=== PATIENT | female | born 1940 | race Caucasian/White ===

== ENCOUNTER 2021-12-05 10:18 | Day surgery (SDC) | payer OTHER ==
[2021-12-05] MEDS ORDERED: Ringers Lactate 1,000 ML IV ONE (10:55)
[2021-12-05] MEDS ORDERED: ACETAMINOPHEN 500 MG TAB ONE (11:19)
[2021-12-05] MEDS ORDERED: CELECOXIB 100 MG CAPSULE ONE (11:19)
[2021-12-05] MEDS ORDERED: CEFOXITIN SODIUM 1 GM/VIAL ONE (11:43)
[2021-12-05 11:44] LABS: SARS-CoV-2 Antigen Rapid Res Negative (Negative)
[2021-12-05] MEDS ORDERED: ROCURONIUM 50 MG/5 ML VIAL IV ONE (11:48)
[2021-12-05] MEDS ORDERED: propofoL 200 MG/20 ML VIAL IV ONE (11:48)
[2021-12-05] MEDS ORDERED: MIDAZOLAM HCL 2 MG/2 ML INJ ONE (11:48)
[2021-12-05] MEDS ORDERED: FENTANYL CITR 100 MCG/2 ML ONE (11:48)
[2021-12-05] MEDS ORDERED: LIDOCAINE 1% MPF 5 ML VIAL ONE (11:48)
--- NOTE | 2021-12-05 11:56 | P.HP ---
Date of Service: 12/05/21 PC: This 73-year-old female presents for elective laparoscopic cholecystectomy with a cholangiogram. HPC: Patient has been experiencing right upper quadrant abdominal pain over the last few months. Had a severe bout last week. Went to an emergency room for evaluation. Was found to have cholecystitis with cholelithiasis. She was also found to have an abdominal aneurysm measuring approximately 3 x 7 cm. Surgery was deferred at that time. Her shovel engineer is aware, and has cleared her for surgery. PSHx: Carotid endarterectomy, hip surgery, carpal tunnel decompression, various skin cancer excisions PMHx: Hypertension, peripheral vascular disease, atrial fibrillation Social Hx: No known allergies Sys R: No cough, wheeze, shortness of breath. No chest pain or palpitations. 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 Wants it fixed. Chest: Air entry equal bilaterally Abd: Soft nontender [place]: Intact Data: Has documented gallstones Impression: Cholecystitis with cholelithiasis, biliary colic Plan: I will taken the operating room for laparoscopic possible open cholecystectomy with a cholangiogram. The risks of this procedure have been discussed. The possibility of bleeding, infection, injury to bile ducts blood vessels and intestines has been described. The possible need for an open and/or further surgeries and procedures was discussed. She understands and wants us to proceed.
[2021-12-05] MEDS ORDERED: NS 0.9% VIAL 10 ML ONE (11:58)
[2021-12-05] MEDS ORDERED: dexAMETHasone 10 MG/ML VIAL ONE (12:12)
[2021-12-05] MEDS ORDERED: KETOROLAC 30 MG/ML INJ ONE (12:12)
[2021-12-05] MEDS ORDERED: GLYCOPYRROLATE 0.2 MG/ML SYR ONE (13:04)
[2021-12-05] MEDS ORDERED: NEOSTIGMINE 1 MG/ML -10 ML VIAL ONE (13:14)
[2021-12-05] MEDS ORDERED: MORPHINE 2 MG/ML SYR IV PRN (13:24)
[2021-12-05] MEDS ORDERED: ONDANSETRON 4 MG/2 ML VIAL IV PRN (13:24)
--- NOTE | 2021-12-05 13:31 | RAD REPORT ---
EXAM DESCRIPTION: RAD - Cholangiogram Oper-Xray Or - 12/05/2021 1:11 pm FINDINGS: There were 7 portable C-arm views chronic fluoroscopic assisted cholecystectomy and intrao perative cholangiogram. Submitted images show biliary tree dilatation without identifiable stone. No stricture or mass identi fiable. Injected contrast flows into the duodenum. Fluoro time was 0.3 minutes. Cumulative dose was 6.04 mGy.
--- NOTE | 2021-12-05 13:32 | P.OP ---
Preoperative diagnosis: Chronic cholecystitis cholelithiasis biliary colic Postoperative diagnosis: The same Primary procedure: Laparoscopic cholecystectomy Secondary procedure: Cholangiogram Anesthesia: General Estimated blood loss: Less than 10 cc Specimen: Gallbladder Operative Technique: The patient brought the operating room placed supine on the table. After the induction of adequate general endotracheal anesthesia, there the abdomen was prepped with a DuraPrep solution, and she was draped in usual aseptic manner. A subumbilical incision was made. This brought down through the skin and subcutaneous tissue. The Visiport was used to enter the peritoneal cavity and created pneumoperitoneum to approximately 12 mmHg. Under direct vision a 5 mm trocar was placed in the upper midline, and another 5 mm trocar on the right lateral side of the abdomen. With the patient placed in reverse Trendelenburg and the table rolled to the left were able to visualize the right upper quadrant. We could see a markedly distended and floppy gallbladder in this area. It shows signs of chronic inflammation. A grasper was used to take down some adhesions of the omentum to the body of the gallbladder. The gallbladder was now grasped with a grasper. Applying traction down by Sam's pouch and applying lateral traction we can visualize both the cystic duct and artery. The cystic duct was isolated. It was noted to have marked valgus and was quite bulbous in shape as it went along. A clip was placed between the gallbladder and the cystic duct. It was most presumed was made into the cystic duct through which we obtained a normal intraoperative cholangiogram. The cholangiogram initially showed some dilation of the extrahepatic biliary tree. However after having allow the contrast to empty into the duodenum Ezra appeared to come back down to a more normal size. We did a pressure injection to demonstrate the upper radicles. As well as this to the catheter was now passed with the balloon deflated into the duodenum. It went easily. This is a 5mm catheter. The catheter was then removed. Clips were placed on the distal portion of the cystic duct. The cystic duct was now divided as was the artery. The gallbladder was dissected free from the liver bed, placed into an Endo Catch, and brought out through the umbilical trocar site. The abdomen was inspected to ensure adequate hemostasis. This having been done the irrigating fluid was aspirated from the peritoneal cavity. The umbilical trocar site was closed using 2 interrupted sutures placed using the Endo Close. At this point the pneumoperitoneum was collapsed, the sutures tied, and daya were applied to the skin. We had intended on fixing this lady's nose where she had a previous skin cancer excised. 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 We are hoping to reapproximate the tissue. However on further review, while the patient is fully relaxed, and we gently manipulated the tissue without cutting or placed any stitches I feel that anything we had attempted to do at this time would make it worse so we left alone. I will explain to this to the patient during the postoperative period. At the end the procedure she was stable and sent to the recovery room. Needle sponge instrument count were correct. No drains were placed. Complications: None
[2021-12-05] MEDS: HYDROMORPHONE HCL 1 MG/ML INJ ONE ×2 (13:39→13:57)
--- NOTE | 2021-12-05 13:44 | EKG ---
Test Date: 2021-12-05 Test Time: 11:03:38 Photostatic Copy Maker: SUZANNE MEASUREMENT RESULTS: Intervals: Rate: 67 NC: 166 QRSD: 72 QT: 428 QTc: 452 [place]: P: 71 NC: 166 QRS: 35 T: 88 INTERPRETIVE STATEMENTS: Sinus rhythm with premature atrial complexes Otherwise normal ECG No previous ECG available for comparison Electronically Signed On 12-05-21 13:43:45 CDT by David Leong
[2021-12-05] MEDS ORDERED: ONDANSETRON 4 MG/2 ML VIAL ONE (13:45)
[2021-12-05] MEDS ORDERED: PROMETHAZINE INJ 25 MG/ML AMP ONE (13:58)
[2021-12-05] MEDS ORDERED: SCOPOLAMINE HYDROBROMIDE PATCH TD ONE (13:59)
[2021-12-05] MEDS: Ringers Lactate 1,000 ML IV SCH ×2 (14:58→15:29)
[2021-12-05] MEDS: HYDROCODONE/APAP 7.5/325 MG TAB PO PRN ×2 (15:28→22:10)
[2021-12-05] MEDS ORDERED: PNEUMOCOCCAL VACCINE 0.5 ML IMVAC ONE (17:00)
[2021-12-05] MEDS ORDERED: DIPHENHYDRAMINE 25 MG TAB/CAP PO ONE (21:39)
[2021-12-06] MEDS: Ringers Lactate 1,000 ML IV SCH (01:39)
[2021-12-06 09:32] VITALS: O2SAT 100
[2021-12-06 12:05] VITALS: BP 135/63; TEMP 97.6
[2021-12-06] MEDS: HYDROCODONE/APAP 7.5/325 MG TAB PO PRN (12:21)
--- NOTE | 2021-12-06 12:50 | P.DS ---
Discharge Date: 12/06/21 Disposition: ROUTINE DISCHARGE Discharge Condition: GOOD Reason for Admission: Postoperative abdominal pain Procedures: Laparoscopic cholecystectomy with intraoperative cholangiogram Brief History of Present Illness: This patient has been having right upper quadrant abdominal pain for the last 3 months off and on. Hospital Course: Patient presented for an elective laparoscopic cholecystectomy with cholangiogram. She tolerated the procedure well. She was admitted postoperatively for observation and pain control. This morning she is up ambulating, tolerating a diet, and is deemed fit for discharge. Vital Signs/Physical Exam: Temp Pulse Resp BP Pulse Ox 97.6 F 58 16 135/63 95 12/06/21 12:00 12/06/21 12:00 12/06/21 12:00 12/06/21 12:00 12/06/21 12:00 Home Medications: Amlodipine Besylate [Norvasc] 1 tab PO DAILY 12/05/21 Aspirin [Ecotrin] 1 tape PO DAILY 12/05/21 Atorvastatin Calcium [Lipitor] 1 tab PO DAILY 12/05/21 Clopidogrel Bisulfate [Plavix] 1 tab PO M,W,F 12/05/21 Ezetimibe [Zetia] 1 tab PO DAILY 12/05/21 Isosorbide Mononitrate [Isosorbide Mononitrate ER] 0.5 tab PO DAILY 12/05/21 Diet: Regular Activity: Ad yee Physician Review: Patient Assessed, Agree with Above Assessment and Plan
== END 2021-12-06 13:00 | disposition home or self-care (01) ==
LOC: OR 10:18 → 4TH 13:58 → OR 12-06 13:00
PROVIDERS: ATTEND Surgery
PROC: BF03YZZ Plain Radiography of Gallbladder and Bile Ducts using Other Contrast (ICD-10-PCS; 2021-12-05)
PROC: 0FT44ZZ Resection of Gallbladder, Percutaneous Endoscopic Approach (ICD-10-PCS; principal; 2021-12-05 12:00)
DX: K80.10 Calculus of gallbladder with chronic cholecystitis without obstruction (principal); Z20.822 Contact with and (suspected) exposure to COVID-19
CPT/HCPCS: 93005; 36415; 88304; 74300; 94010; 87811; 47563; J2704; J2710; J2550; J2001; J2250; J3010; J1100; J2270; A4216; J1170; J7120 ×3; J0694; J2405